=== PATIENT | female | born 1975 | race Caucasian/White ===

== ENCOUNTER 2021-02-05 09:53 | Day surgery (SDC) | payer BC, MEDICAID ==
[~2021-02-05 09:53] MED LIST: Glycopyrrolate 0.2 MG/ML SDV ONE; Ketorolac 30 MG/ML SDV ONE; Lidocaine 2% 5 ML SDV ONE; Midazolam 1 MG/ML 2 ML SDV ONE; Ondansetron 4 MG/2 ML SDV ONE; Propofol 200 MG/20 ML SDV ONE; Rocuronium Bromide 50 MG/5 ML Syringe ONE; Sugammadex Sodium 200 MG/2 ML VIAL ONE; fentaNYL 250 MCG/5 ML SDV ONE
[2021-02-05 10:03] LABS: BLOOD UREA NITROGEN,BUN 9 mg/dL (7.0-18.0); CARBON DIOXIDE,CO2 21.2 mmol/L (21.0-32.0); CHLORIDE,CL 106 mmol/L (98-107); GLUCOSE RANDOM 107 mg/dL (74-106); POTASSIUM,K 4.4 mmol/L (3.5-5.1); SODIUM,NA 140 mmol/L (136-145)
[2021-02-05] MEDS: Lactated Ringers 1,000 ML IV SCH ×2 (11:22→15:42)
[2021-02-05] MEDS ORDERED: Albuterol 0.083% 2.5 MG/3 ML Neb Soln NEB PRN (11:26)
[2021-02-05] MEDS ORDERED: Metoclopramide 10 MG/2 ML SDV IVPUSH PRN (11:26)
[2021-02-05] MEDS ORDERED: Naloxone 0.4 MG/ML SDV IVPUSH PRN (11:26)
[2021-02-05] MEDS ORDERED: fentaNYL 100 MCG/2 ML SDV IVPUSH PRN (11:26)
[2021-02-05] MEDS ORDERED: Ondansetron 4 MG/2 ML SDV IVPUSH PRN ×2 (11:26→14:31)
--- NOTE | 2021-02-05 11:26 | PCM.PREANE ---
Preanesthetic Assessment - Procedure Proposed Procedure: Lap assisted Vag Hysterectomy, Cysto, Poss USO or BSO - Anesthesia/Transfusion/Family Hx Anesthesia History: Prior Anesthesia Without Reaction Other Type of Anesthesia Reaction Comment: "daughter has problems with hyperactivity after anesthesia" Transfusion History: No Prior Transfusion(s) - Review of Systems General: No Symptoms Pulmonary: No Symptoms (Smokes about 2 cigs/day) Cardiovascular: No Symptoms Gastrointestinal: No Symptoms (GERD, well controlled) - Physical Assessment NPO Status Date: 02/04/21 NPO Status Time: 16:00 Height: 5 ft 6 in Weight: 78.925 kg ASA Class: 2 Mental Status: Alert & Oriented x3 Airway Class: Mallampati = 3 Dentition: Reports: Normal Dentition Thyro-Mental Finger Breadths: 3 Mouth Opening Finger Breadths: 3 ROM/Head Extension: Full Lungs: Clear to Auscultation, Normal Respiratory Effort Cardiovascular: Regular Rate, Regular Rhythm - Lab Values: Laboratory Last Values WBC 4.99 K/uL (4.0-11.0) 02/05/21 09:38 RBC 3.84 M/uL (4.30-5.90) L 02/05/21 09:38 Hgb 7.2 g/dL (12.0-16.0) L 02/05/21 09:38 Hct 26.1 % (36.0-46.0) L 02/05/21 09:38 MCV 68.0 fL (80.0-98.0) L 02/05/21 09:38 MCH 18.8 pg (27.0-32.0) L 02/05/21 09:38 MCHC 27.6 g/dL (31.0-37.0) L 02/05/21 09:38 RDW Std Deviation 53.8 fl (28.0-62.0) 02/05/21 09:38 RDW Coeff of Whitley 22 % (11.0-15.0) H 02/05/21 09:38 Plt Count 370 K/uL (150-400) 02/05/21 09:38 MPV 8.50 fL (7.40-12.00) 02/05/21 09:38 Nucleated RBC % 0.0 /100WBC 02/05/21 09:38 Nucleated RBCs # 0 K/uL 02/05/21 09:38 Sodium 140 mmol/L (136-145) 02/05/21 09:38 Potassium 4.4 mmol/L (3.5-5.1) 02/05/21 09:38 Chloride 106 mmol/L (98-107) 02/05/21 09:38 Carbon Dioxide 21.2 mmol/L (21.0-32.0) 02/05/21 09:38 BUN 9 mg/dL (7.0-18.0) 02/05/21 09:38 Creatinine 0.6 mg/dL (0.6-1.0) 02/05/21 09:38 Est Cr Clr Drug Dosing 108.51 mL/min 02/05/21 09:38 Estimated GFR (MDRD) > 60.0 ml/min 02/05/21 09:38 Glucose 107 mg/dL (74-106) H 02/05/21 09:38 Calcium 8.3 mg/dL (8.5-10.1) L 02/05/21 09:38 HCG, Qual NEGATIVE (NEG) 02/05/21 09:38 SARS-CoV-2 RNA (ARSEN) NEGATIVE (NEGATIVE) 02/05/21 09:46 Blood Type A POSITIVE 02/05/21 09:38 Antibody Screen NEGATIVE 02/05/21 09:38 - Allergies Allergies/Adverse Reactions: Allergies Allergy/AdvReac Type Severity Reaction Status Date / Time ciprofloxacin [From Cipro] Allergy Redness/swelling Verified 02/05/21 11:23 at IV site ciprofloxacin HCl Allergy Redness & Verified 02/05/21 11:23 [From Cipro] swelling at IV site morphine Allergy loss of Verified 02/05/21 11:23 vision - Acknowledgements Anesthesia Type Planned: General Anesthesia Pt an Appropriate Candidate for the Planned Anesthesia: Yes Alternatives and Risks of Anesthesia Discussed w Pt/Guardian: Yes Pt/Guardian Understands and Agrees with Anesthesia Plan: Yes PreAnesthesia Questionnaire - Past Health History Medical/Surgical History: Denies Medical/Surgical History HEENT History: Reports: None Cardiovascular History: Reports: None Respiratory History: Reports: None Gastrointestinal History: Reports: GERD Genitourinary History: Reports: None 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: , Spontaneous Musculoskeletal History: Reports: None Neurological History: Reports: None Psychiatric History: Reports: Anxiety, Depression Endocrine/Metabolic History: Reports: None Hematologic History: Reports: None Immunologic History: Reports: None Oncologic (Cancer) History: Reports: None Dermatologic History: Reports: None - Past Surgical History Head Surgeries/Procedures: Reports: None HEENT Surgical History: Reports: None Cardiovascular Surgical History: Reports: None Respiratory Surgical History: Reports: None GI Surgical History: Reports: None Female Surgical History: Reports: Section, D&C Endocrine Surgical History: Reports: None Neurological Surgical History: Reports: None Musculoskeletal Surgical History: Reports: None Oncologic Surgical History: Reports: None Dermatological Surgical History: Reports: None - SUBSTANCE USE Tobacco Use Status *Q: Light Tobacco User Tobacco Use Within Last Twelve Months: Cigarettes - HOME MEDS Home Medications: Home Meds Omeprazole 20 mg PO DAILY PRN 01/29/21 [History] - CURRENT (IN HOUSE) MEDS Current Meds: Current Medications Lactated Ringer's (Ringers, Lactated) 1,000 mls @ 125 mls/hr IV ASDIRECTED [facility] Last Admin: 02/05/21 11:22 Dose: 125 mls/hr Documented by: Discontinued Medications Fentanyl (Fentanyl 250 Mcg/5 Ml Sdv) Confirm Administered Dose 250 mcg .ROUTE .STK-MED ONE Stop: 02/05/21 07:26 Glycopyrrolate (Glycopyrrolate 0.2 Mg/Ml Sdv) Confirm Administered Dose 0.2 mg .ROUTE .STK-MED ONE Stop: 02/05/21 07:26 Ketorolac Tromethamine (Ketorolac 30 Mg/Ml Sdv) Confirm Administered Dose 30 mg .ROUTE .STK-MED ONE Stop: 02/05/21 07:26 Lidocaine (Lidocaine 2% 5 Ml Sdv) Confirm Administered Dose 5 ml .ROUTE .STK-MED ONE Stop: 02/05/21 07:26 Midazolam HCl (Midazolam 1 Mg/Ml 2 Ml Sdv) Confirm Administered Dose 2 mg .ROUTE .STK-MED ONE Stop: 02/05/21 07:25 Ondansetron HCl (Ondansetron 4 Mg/2 Ml Sdv) Confirm Administered Dose 4 mg .ROUTE .STK-MED ONE Stop: 02/05/21 07:26 Propofol (Propofol 200 Mg/20 Ml Sdv) Confirm Administered Dose 200 mg .ROUTE .STK-MED ONE Stop: 02/05/21 07:25 Rocuronium Abernathy (Rocuronium Abernathy 50 Mg/5 Ml Syringe) Confirm Administered Dose 50 mg .ROUTE .STK-MED ONE Stop: 02/05/21 07:26 Sugammadex Sodium (Sugammadex Sodium 200 Mg/2 Ml Vial) Confirm Administered Dose 200 mg .ROUTE .[employer]-MED ONE Stop: 02/05/21 07:26
--- NOTE | 2021-02-05 13:51 | PCM.POSTAN ---
POST ANESTHESIA ASSESSMENT - MENTAL STATUS Mental Status: Alert, Oriented - VITAL SIGNS Vital Signs: Last Vital Signs Temp 97.9 F 02/05/21 11:25 Pulse 74 02/05/21 11:25 Resp 16 02/05/21 11:25 BP 123/82 02/05/21 11:25 Pulse Ox 99 02/05/21 11:25 - RESPIRATORY Respiratory Status: Respiratory Rate WNL, Airway Patent, O2 Saturation Stable - CARDIOVASCULAR CV Status: Pulse Rate WNL, Blood Pressure Stable - GASTROINTESTINAL GI Status: No Symptoms - PAIN Pain Score: 4 - POST OP HYDRATION Hydration Status: Adequate & Stable
[2021-02-05] MEDS ORDERED: Fluorescein 5 ML Vial ONE (13:53)
[2021-02-05] MEDS ORDERED: Bupivacaine 0.25% 10 ML SDV ONE (13:53)
[2021-02-05] MEDS ORDERED: Methylene Blue 50 MG/10 ML Ampule ONE (13:53)
[2021-02-05] MEDS ORDERED: Octyl 2-Cyanoacrylate 1 Tube ONE (13:54)
--- NOTE | 2021-02-05 13:55 | PCM48HPAN ---
Post Anesthesia Note - EVALUATION WITHIN 48HRS OF ANESTHETIC Vital Signs in Normal Range: Yes Patient Participated in Evaluation: Yes Respiratory Function Stable: Yes Airway Patent: Yes Cardiovascular Function Stable: Yes Hydration Status Stable: Yes Pain Control Satisfactory: Yes Nausea and Vomiting Control Satisfactory: Yes Mental Status Recovered: Yes Vital Signs: Last Vital Signs Temp 97.9 F 02/05/21 13:46 Pulse 91 02/05/21 13:52 Resp 14 02/05/21 13:52 BP 100/55 L 02/05/21 13:52 Pulse Ox 93 L 02/05/21 13:52 - COMMENTS/OBSERVATIONS Free Text/Narrative:: Pt doing well post-op. VSS. No apparent anesthetic complications. Dr. Nima Ruth
[2021-02-05] MEDS: HYDROmorphone 1 MG/ML Syringe IVPUSH PRN ×2 (13:57→14:23)
[2021-02-05] MEDS ORDERED: Acetaminophen/oxyCODONE 325-5 MG Tab PO PRN (14:31)
[2021-02-05] MEDS ORDERED: Promethazine 25 MG/ML SDV IM PRN (14:31)
--- NOTE | 2021-02-05 14:39 | PCM.OPNOTE ---
- General Post-Op/Procedure Note Date of Surgery/Procedure: 02/05/21 Operative Procedure(s): laparoscopically assisted vaginal hysterectomy right salpingectomy and cystoscopy. Findings: uterus 10-11 week size. Cystoscopy, normal with copious flow from bilateral ureters. The left adnexa had a tuboovarian complex with adhesions and fibroma immediately over the ureter, therefore right tube was left in situ. Pre Op Diagnosis: menorrhagia, anemia Post-Op Diagnosis: Same Anesthesia Technique: General ET Tube Primary Surgeon: Sunshine Iglesias Secondary Surgeon: Jovan Rubio Anesthesia Provider: Nima Ruth Mechanical Piping Designer: Azam Wolf Pathology: uterus and right tube. EBL in mLs: 500 Complications: None Condition: Good Free Text/Narrative:: Intake & Output 02/04/21 02/05/21 02/05/21 22:59 06:59 14:59 Intake Total 500 Output Total 975 Balance -475
[2021-02-05] MEDS ORDERED: Omeprazole 20 MG Cap.CR PO PRN (14:58)
[2021-02-05] MEDS ORDERED: oxyCODONE 5 MG Tab PO ONE (18:00)
[2021-02-05] MEDS: Acetaminophen/oxyCODONE 325-5 MG Tab PO PRN (19:59)
--- NOTE | 2021-02-05 20:39 | OR ---
SURGEON: Sunshine Iglesias M.D. DATE OF PROCEDURE: 02/05/2021 PREOPERATIVE DIAGNOSIS: Menorrhagia with anemia. POSTOPERATIVE DIAGNOSIS: Menorrhagia with anemia. PROCEDURE: Laparoscopically assisted vaginal hysterectomy with right salpingectomy and cystoscopy. PRIMARY SURGEON: Sunshine Iglesias M.D. REAMING PRESS OPERATOR: Jovan Rubio MD ANESTHESIA: General endotracheal. ESTIMATED BLOOD LOSS: 500 mL. FINDINGS: Uterus enlarged, 10-week size, sounds to 10 cm. Left tubo-ovarian complex overlying the left ureter left in situ. Normal-appearing right ovary. On cystoscopy, there was no evidence of any bladder trauma with copious flow of bright green urine from bilateral ureteral orifices after IV fluorescein had been given. COMPLICATIONS: None known. DISPOSITION: Stable to Recovery. BRIEF HISTORY: This is a 45-year-old female. She presents having had two prior C-sections, one prior vaginal delivery, with complaint of menorrhagia. Initially, the plan was to proceed with an ablation and bilateral salpingectomy for sterilization; however, further evaluation revealed suspected adenomyosis on ultrasound as well as an intra-endometrial mass. Endometrial biopsy was performed and was benign. Also, Pap smear and HPV were obtained and were negative, and due to the finding of adenomyosis, I discussed the option of a hysteroscopy with removal of the intracavitary lesion, as well as placement of an IUD which would be more effective than ablation versus proceeding directly with hysterectomy. She desires to proceed directly with hysterectomy. The hysterectomy was initially scheduled for last week, however, was delayed due to endometrial biopsy results and this week, she presents for preop labs with a hemoglobin of 7.2. I discussed the option of waiting and receiving IV iron and attempting to elevate her hemoglobin versus proceeding on with the surgery, understanding that she very likely will require a transfusion. After this discussion, she did desire to proceed with the surgery. Surgical risks otherwise have been discussed including bleeding; infection; injury to bowel, bladder, blood vessels, ureters, or other organs; risk of thromboembolic event; and risk of anesthesia. Understanding all these risks, she does desire to proceed. DESCRIPTION OF PROCEDURE: With the patient in dorsal lithotomy position, under adequate general endotracheal anesthesia, the abdomen was prepped with chlorhexidine and the vaginal and perineal area were prepped with Betadine and draped in the usual fashion for laparoscopically assisted vaginal surgery. SCDs had been placed. Bella catheter had been placed and backfilled with 30 mL of dilute indigo carmine. An appropriate time-out was held. She had received 2 g of Ancef IV. A bimanual examination was performed revealing an anteverted 10-week size uterus. Speculum was placed in the vagina. The cervix was grasped with a Bolivar tenaculum and the uterus sounded to 10 cm and accepted the ZUMI uterine manipulator without further dilatation and the balloon was filled. The instruments removed from the vagina. Cone Machine Feeder's gloves were changed. Attention was then turned abdominally, where 3 mL of 0.25% Marcaine were injected inferior to the umbilicus. A transverse curvilinear incision was made with a scalpel inferior to the umbilicus and the anterior abdominal wall was elevated. Veress needle was inserted with an opening pressure of 3 to 4 mmHg. CO2 was insufflated to develop an adequate pneumoperitoneum of 13 mmHg. The 5 mm port was placed and laparoscope was placed into the abdominal cavity. There was no evidence of any trauma from the port placement site. Two additional ports were placed 2 cm medial and cephalad from the anterior superior iliac spine on the right and the left. The uterus was elevated. The patient was placed in steep Trendelenburg position. The bowel was retracted out of the pelvis. The right ureter was easily identified deep within the pelvis. The left ureter was noted to enter to flow right beneath the peritoneum, beneath the dense adhesions of a tubo-ovarian complex with the tube wrapped around and densely adhered to the ovary. 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 Knowing that she was starting with a hemoglobin of 7.2 and trying to avoid an open abdominal surgery and knowing that she also did not have a primary complaint of left-sided pain, I did decide to leave the tube intact on the left side and proceeded with grasping the tip of the right tube and the tip of the tube from the ovary using the LigaSure, proceeding across the mesosalpinx proximally using the LigaSure, and then cross-clamping the utero- ovarian ligament on the right, using the LigaSure cutting and cauterizing and then entering the round ligament on the right, opening the anterior leaf of the broad ligament as well as the posterior leaf of the broad ligament, and then proceeding inferiorly to the upper portion of the uterine vessels. With all of the dissection, there was bleeding despite extensive coagulation, so I did proceed with opening the anterior leaf of the broad ligament, developing a bladder flap using the LigaSure, and I repeated the process on the left side except I did cross-clamp the tube adjacent to the uterus, cauterized and ligated it, proceeded down the round ligament, opened the anterior and posterior ligaments on the left. Due to the extremely large uterine vessels, I felt that it was safest to proceed vaginally at this point to limit blood loss which I felt I could better ligate these vessels vaginally than the LigaSure could do. Therefore, machine operator cane cutter's gloves were changed. The abdomen was desufflated. The patient was placed in high Trendelenburg position. The bladder was released. A weighted speculum was placed posteriorly and right angle retractors were placed anteriorly on the vaginal sidewalls and the cervix was grasped with a Bolivar tenaculum, circumscribed using electrocautery. The vaginal mucosa was pushed away from the cervix using a sponge, and the posterior cul-de-sac was sharply entered. A Karine-Auvard speculum was placed posteriorly. At this point, there was approximately 200 mL of blood in the posterior cul-de-sac and therefore, I did request to transfuse two units of packed red blood cells with Anesthesia. Anesthesia, however, felt that the patient was stable despite her anemia and recommended not transfusing blood at this point. They asked my estimated total blood loss prediction for the procedure, and I stated that it was 400 and therefore, they felt that we could check a postop hemoglobin. She did remain stable throughout the remainder of the surgery. The anterior cul-de- sac was entered sharply. A finger was placed into the peritoneal cavity. A right angle retractor was placed anteriorly. The uterosacral ligaments were clamped, cut, and ligated using Jazmín ligature of 2-0 Polysorb. The two additional pedicles were taken on the right and the left, incorporating the lower portion of the broad ligament and completely ligating the uterine vessels. At this point, the pelvis was hemostatic. The uterus and right tube were delivered vaginally. The pedicles were inspected and were hemostatic. The retained uterosacral ligatures were ligated to the vaginal apices bilaterally. The vaginal mucosa was closed with a running lock suture of 0 Polysorb. The Bella catheter was then removed. IV Lasix and fluorescein had been given. Cystoscopy was performed using sterile water as a distending medium. There was copious flow of bright green urine from bilateral ureteral orifices. There was also no evidence of any trauma to the bladder mucosa. This being completed, the speculum was placed in the vagina and the incision was hemostatic. Then, machine operator cane cutter's gloves were changed and the abdomen was re-insufflated and careful inspection of the pelvis revealed approximately another 100 mL of clot in the pelvis that was removed. The pelvis was copiously irrigated and inspected. There were no discrete areas of bleeding. Avitene was placed and the pelvis was inspected under high and low pressures, and remained hemostatic. Therefore, the abdomen was completely desufflated. The port sites were removed. The skin was closed with Dermabond. Speculum was again placed in the vagina, and a small abrasion on the right aspect of the vaginal cuff was closed for hemostasis using a [id number] suture of 0 Polysorb. The vagina was otherwise hemostatic. Bella catheter had been replaced. Final sponge, needle, and instrument counts were reported as correct. There were no known complications. The patient was transferred to Recovery in good condition. CAITLIN / SANJEEV /[id number]
[2021-02-06] MEDS: Acetaminophen/oxyCODONE 325-5 MG Tab PO PRN ×3 (01:20→10:57)
[2021-02-06 07:56] LABS: BLOOD UREA NITROGEN,BUN 5 mg/dL (7.0-18.0); CARBON DIOXIDE,CO2 24.6 mmol/L (21.0-32.0); CHLORIDE,CL 104 mmol/L (98-107); GLUCOSE RANDOM 109 mg/dL (74-106); SODIUM,NA 138 mmol/L (136-145)
[2021-02-06] MEDS ORDERED: Ketorolac 30 MG/ML SDV IVPUSH ONE (08:00)
--- NOTE | 2021-02-06 09:35 | PCM.SURGPN ---
- General Info Date of Service: 02/06/21 Date of Surgery/Procedure: 02/05/21 POD#: 1 Post-Op Diagnosis: menorrhagia with anemia Functional Status: Reports: Pain Controlled, Tolerating Diet, Ambulating, Urinating - Review of Systems General: Reports: No Symptoms HEENT: Reports: No Symptoms Pulmonary: Reports: No Symptoms Cardiovascular: Reports: No Symptoms Gastrointestinal: Reports: No Symptoms Genitourinary: Reports: No Symptoms Musculoskeletal: Reports: No Symptoms Skin: Reports: No Symptoms Neurological: Reports: No Symptoms Psychiatric: Reports: No Symptoms - Patient Data Vitals - Most Recent: Last Vital Signs Temp 36.9 C 02/06/21 08:00 Pulse 74 02/06/21 08:00 Resp 16 02/06/21 08:00 BP 96/59 L 02/06/21 08:00 Pulse Ox 95 02/06/21 08:00 Weight - Most Recent: 78.925 kg I&O - Last 24 Hours: Intake & Output 02/05/21 02/06/21 02/06/21 22:59 06:59 14:59 Intake Total 0 2200 Output Total 2900 Balance 0 -700 Lab Results Last 24 Hrs: Laboratory Results - last 24 hr 02/05/21 02/05/21 02/05/21 Range/Units 09:38 09:38 09:38 WBC 4.99 (4.0-11.0) K/uL RBC 3.84 L (4.30-5.90) M/uL Hgb 7.2 L (12.0-16.0) g/dL Hct 26.1 L (36.0-46.0) % MCV 68.0 L (80.0-98.0) fL MCH 18.8 L (27.0-32.0) pg MCHC 27.6 L (31.0-37.0) g/dL RDW Std Deviation 53.8 (28.0-62.0) fl RDW Coeff of Whitley 22 H (11.0-15.0) % Plt Count 370 (150-400) K/uL MPV 8.50 (7.40-12.00) fL Neut % (Auto) (48.0-80.0) % Lymph % (Auto) (16.0-40.0) % [place] % (Auto) (0.0-15.0) % Eos % (Auto) (0.0-7.0) % Baso % (Auto) (0.0-1.5) % Neut # (Auto) (1.4-5.7) K/uL Lymph # (Auto) (0.6-2.4) K/uL [place] # (Auto) (0.0-0.8) K/uL Eos # (Auto) (0.0-0.7) K/uL Baso # (Auto) (0.0-0.1) K/uL Nucleated RBC % 0.0 /100WBC Nucleated RBCs # 0 K/uL Sodium 140 (136-145) mmol/L Potassium 4.4 (3.5-5.1) mmol/L Chloride 106 (98-107) mmol/L Carbon Dioxide 21.2 (21.0-32.0) mmol/L BUN 9 (7.0-18.0) mg/dL Creatinine 0.6 (0.6-1.0) mg/dL Est Cr Clr Drug Dosing 108.51 mL/min Estimated GFR (MDRD) > 60.0 ml/min Glucose 107 H (74-106) mg/dL Calcium 8.3 L (8.5-10.1) mg/dL HCG, Qual NEGATIVE (NEG) SARS-CoV-2 RNA (ARSEN) (NEGATIVE) Blood Type Antibody Screen Crossmatch 02/05/21 02/05/21 02/05/21 Range/Units 09:38 09:46 19:23 WBC (4.0-11.0) K/uL RBC (4.30-5.90) M/uL Hgb 6.3 L (12.0-16.0) g/dL Hct 22.7 L (36.0-46.0) % MCV (80.0-98.0) fL MCH (27.0-32.0) pg MCHC (31.0-37.0) g/dL RDW Std Deviation (28.0-62.0) fl RDW Coeff of Whitley (11.0-15.0) % Plt Count (150-400) K/uL MPV (7.40-12.00) fL Neut % (Auto) (48.0-80.0) % Lymph % (Auto) (16.0-40.0) % [place] % (Auto) (0.0-15.0) % Eos % (Auto) (0.0-7.0) % Baso % (Auto) (0.0-1.5) % Neut # (Auto) (1.4-5.7) K/uL Lymph # (Auto) (0.6-2.4) K/uL [place] # (Auto) (0.0-0.8) K/uL Eos # (Auto) (0.0-0.7) K/uL Baso # (Auto) (0.0-0.1) K/uL Nucleated RBC % /100WBC Nucleated RBCs # K/uL Sodium (136-145) mmol/L Potassium (3.5-5.1) mmol/L Chloride (98-107) mmol/L Carbon Dioxide (21.0-32.0) mmol/L BUN (7.0-18.0) mg/dL Creatinine (0.6-1.0) mg/dL Est Cr Clr Drug Dosing mL/min Estimated GFR (MDRD) ml/min Glucose (74-106) mg/dL Calcium (8.5-10.1) mg/dL HCG, Qual (NEG) SARS-CoV-2 RNA (ARSEN) NEGATIVE (NEGATIVE) Blood Type A POSITIVE Antibody Screen NEGATIVE Crossmatch See Detail 02/06/21 02/06/21 Range/Units 06:43 06:43 WBC 12.11 H (4.0-11.0) K/uL RBC 3.91 L (4.30-5.90) M/uL Hgb 8.6 L (12.0-16.0) g/dL Hct 28.9 L (36.0-46.0) % MCV 73.9 L (80.0-98.0) fL MCH 22.0 L (27.0-32.0) pg MCHC 29.8 L (31.0-37.0) g/dL RDW Std Deviation 69.0 H (28.0-62.0) fl RDW Coeff of Whitley 26 H (11.0-15.0) % Plt Count 331 (150-400) K/uL MPV 9.40 (7.40-12.00) fL Neut % (Auto) 78.2 (48.0-80.0) % Lymph % (Auto) 12.8 L (16.0-40.0) % [place] % (Auto) 8.8 (0.0-15.0) % Eos % (Auto) 0.1 (0.0-7.0) % Baso % (Auto) 0.1 (0.0-1.5) % Neut # (Auto) 9.5 H (1.4-5.7) K/uL Lymph # (Auto) 1.6 (0.6-2.4) K/uL [place] # (Auto) 1.1 H (0.0-0.8) K/uL Eos # (Auto) 0.0 (0.0-0.7) K/uL Baso # (Auto) 0.0 (0.0-0.1) K/uL Nucleated RBC % 0.0 /100WBC Nucleated RBCs # 0 K/uL Sodium 138 (136-145) mmol/L Potassium 4.0 (3.5-5.1) mmol/L Chloride 104 (98-107) mmol/L Carbon Dioxide 24.6 (21.0-32.0) mmol/L BUN 5 L (7.0-18.0) mg/dL Creatinine 0.7 (0.6-1.0) mg/dL Est Cr Clr Drug Dosing 92.10 mL/min Estimated GFR (MDRD) > 60.0 ml/min Glucose 109 H (74-106) mg/dL Calcium 8.3 L (8.5-10.1) mg/dL HCG, Qual (NEG) SARS-CoV-2 RNA (ARSEN) (NEGATIVE) Blood Type Antibody Screen Crossmatch Med Orders - Current: Current Medications Lactated Ringer's (Ringers, Lactated) 1,000 mls @ 125 mls/hr IV ASDIRECTED [facility] Last Admin: 02/05/21 15:42 Dose: 125 mls/hr Documented by: Omeprazole (Omeprazole 20 Mg Cap.Cr) 20 mg PO DAILY PRN PRN Reason: Heartburn Ondansetron HCl (Ondansetron 4 Mg/2 Ml Sdv) 4 mg IVPUSH Q6H PRN PRN Reason: Nausea/Vomiting Oxycodone/Acetaminophen (Acetaminophen/Oxycodone 325-5 Mg Tab) 1 tab PO Q4H PRN PRN Reason: Pain (moderate 4-6) Last Admin: 02/05/21 15:32 Dose: 1 tab Documented by: Oxycodone/Acetaminophen (Acetaminophen/Oxycodone 325-5 Mg Tab) 2 tab PO Q4H PRN PRN Reason: Pain (moderate 4-6) Last Admin: 02/06/21 06:15 Dose: 2 tab Documented by: Promethazine HCl (Promethazine 25 Mg/Ml Sdv) 25 mg IM Q6H PRN PRN Reason: Nausea/Vomiting Discontinued Medications Albuterol (Albuterol 0.083% 2.5 Mg/3 Ml Neb Soln) 2.5 mg NEB ONETIME PRN PRN Reason: Wheezing Bupivacaine HCl (Bupivacaine 0.25% 10 Ml Sdv) Confirm Administered Dose 10 ml .ROUTE .STK-MED ONE Stop: 02/05/21 13:54 Droperidol (Droperidol 5 Mg/2 Ml Sdv) 0.625 mg IVPUSH ONETIME PRN PRN Reason: Nausea/Vomiting Fentanyl (Fentanyl 250 Mcg/5 Ml Sdv) Confirm Administered Dose 250 mcg .ROUTE .STK-MED ONE Stop: 02/05/21 07:26 Fentanyl (Fentanyl 100 Mcg/2 Ml Sdv) 50 mcg IVPUSH Q5M PRN PRN Reason: Pain (mild 1-3) Fluorescein Sodium (Fluorescein 5 Ml Vial) Confirm Administered Dose 5 ml .ROUTE .STK-MED ONE Stop: 02/05/21 13:54 Glycopyrrolate (Glycopyrrolate 0.2 Mg/Ml Sdv) Confirm Administered Dose 0.2 mg .ROUTE .STK-MED ONE Stop: 02/05/21 07:26 Hydromorphone HCl (Hydromorphone 1 Mg/Ml Syringe) 1 mg IVPUSH Q10M PRN PRN Reason: Pain (moderate 4-6) Last Admin: 02/05/21 14:23 Dose: 1 mg Documented by: Ketorolac Tromethamine (Ketorolac 30 Mg/Ml Sdv) Confirm Administered Dose 30 mg .ROUTE .STK-MED ONE Stop: 02/05/21 07:26 Ketorolac Tromethamine (Ketorolac 30 Mg/Ml Sdv) 30 mg IVPUSH ONETIME ONE Stop: 02/06/21 08:01 Last Admin: 02/06/21 08:04 Dose: 30 mg Documented by: Lidocaine (Lidocaine 2% 5 Ml Sdv) Confirm Administered Dose 5 ml .ROUTE .ST-MED ONE Stop: 02/05/21 07:26 Methylene Blue (Methylene Blue 50 Mg/10 Ml Ampule) Confirm Administered Dose 50 mg .ROUTE .STK-MED ONE Stop: 02/05/21 13:54 Metoclopramide HCl (Metoclopramide 10 Mg/2 Ml Sdv) 10 mg IVPUSH ONETIME PRN PRN Reason: Nausea/Vomiting Midazolam HCl (Midazolam 1 Mg/Ml 2 Ml Sdv) Confirm Administered Dose 2 mg .ROUTE .ST-MED ONE Stop: 02/05/21 07:25 Naloxone HCl (Naloxone 0.4 Mg/Ml Sdv) 0.1 mg IVPUSH ASDIRECTED PRN PRN Reason: Respiratory Depression Octyl Cyanoacrylate (Octyl 2-Cyanoacrylate 1 Tube) Confirm Administered Dose 1 applic .ROUTE .[facility]-MED ONE Stop: 02/05/21 13:55 Ondansetron HCl (Ondansetron 4 Mg/2 Ml Sdv) Confirm Administered Dose 4 mg .ROUTE .ST-MED ONE Stop: 02/05/21 07:26 Ondansetron HCl (Ondansetron 4 Mg/2 Ml Sdv) 4 mg IVPUSH ONETIME PRN PRN Reason: Nausea/Vomiting Oxycodone HCl (Oxycodone 5 Mg Tab) 5 mg PO ONETIME ONE Stop: 02/05/21 18:01 Last Admin: 02/05/21 18:11 Dose: 5 mg Documented by: Propofol (Propofol 200 Mg/20 Ml Sdv) Confirm Administered Dose 200 mg .ROUTE .ST-MED ONE Stop: 02/05/21 07:25 Rocuronium Magnolia (Rocuronium Magnolia 50 Mg/5 Ml Syringe) Confirm Administered Dose 50 mg .ROUTE .[facility]-MED ONE Stop: 02/05/21 07:26 Sugammadex Sodium (Sugammadex Sodium 200 Mg/2 Ml Vial) Confirm Administered Dose 200 mg .ROUTE .ST-MED ONE Stop: 02/05/21 07:26 - Exam Wound/Incisions: Healing Well General: Alert, Oriented Neck: Supple Lungs: Normal Respiratory Effort GI/Abdominal Exam: Soft, Non-Tender, No Distention Extremities: Non-Tender, No Pedal Edema Skin: Warm, Dry, Intact Psy/Mental Status: Alert, Normal Affect, Normal Mood Sepsis Event Note - Evaluation Sepsis Screening Result: No Definite Risk - Focused Exam Vital Signs: Vital Signs Temp Temp Pulse Resp BP Pulse Ox 02/06/21 08:00 36.9 C 74 16 96/59 L 95 02/06/21 06:08 36.9 C 74 16 105/65 96 02/06/21 05:08 36.8 C 68 16 104/65 98 02/06/21 04:06 36.7 C 77 16 109/65 97 02/06/21 02:27 36.8 C 63 17 102/62 97 02/06/21 02:12 36.8 C 73 16 106/66 98 02/06/21 01:31 36.7 C 70 16 109/60 98 02/05/21 23:08 36.7 C 76 17 109/60 97 02/05/21 22:53 36.7 C 74 16 110/65 98 02/05/21 22:38 36.6 C 62 16 102/62 97 - Problem List & Annotations (1) Menorrhagia with irregular cycle SNOMED Code(s): 217541989 Code(s): N92.1 - EXCESSIVE AND FREQUENT MENSTRUATION WITH IRREGULAR CYCLE Status: Acute Current Visit: Yes - Problem List Review Problem List Initiated/Reviewed/Updated: Yes - My Orders Last 24 Hours: Active Orders 24 hr Category Date Time Status Patient Status [ADT] Routine ADT 02/05/21 14:32 Active Antiembolic Devices [RC] PER UNIT ROUTINE Care 02/05/21 14:32 Active Notify Provider Intake and Out [RC] ASDIRECTED Care 02/05/21 14:32 Active Notify Provider Vital Signs [RC] ASDIRECTED Care 02/05/21 14:32 Active Overnight Pulse Oximetry [RC] Click to Edit Care 02/05/21 11:26 Active Oxygen Therapy [RC] ASDIRECTED Care 02/05/21 14:32 Active RT Incentive Spirometry [RC] Q2HWA Care 02/05/21 14:32 Active Ready for Discharge [RC] PER UNIT ROUTINE Care 02/06/21 09:29 Ordered Up With Assistance [RC] PER UNIT ROUTINE Care 02/05/21 14:32 Active Up ad Moraima [RC] PER UNIT ROUTINE Care 02/05/21 14:32 Active Urinary Catheter Removal [RC] Per Unit Routine Care 02/05/21 14:32 Active Vital Signs [RC] Q4H Care 02/05/21 14:32 Active Regular Diet [DIET] Diet 02/05/21 Dinner Active Acetaminophen/oxyCODONE [Percocet 325-5 MG] Med 02/05/21 14:31 Active 1 tab PO Q4H PRN Acetaminophen/oxyCODONE [Percocet 325-5 MG] Med 02/05/21 14:31 Active 2 tab PO Q4H PRN Omeprazole Med 02/05/21 14:58 Active 20 mg PO DAILY PRN Ondansetron [Zofran] Med 02/05/21 14:31 Active 4 mg IVPUSH Q6H PRN Promethazine [Phenergan] Med 02/05/21 14:31 Active 25 mg IM Q6H PRN Peripheral IV Discontinue [OM.PC] Routine Oth 02/05/21 14:32 Ordered Pulse Oximetry Continuous Monitoring [OM.PC] Routine Oth 02/05/21 11:26 Ordered Sequential Compression Device [OM.PC] Per Unit Routine Oth 02/05/21 14:32 Ordered Transfuse Red Blood Cells [COMM] Stat Oth 02/05/21 21:21 Ordered Resuscitation Status Routine Resus Stat 02/05/21 14:31 Ordered Medication Orders Lactated Ringer's (Ringers, Lactated) 1,000 mls @ 125 mls/hr IV ASDIRECTED [facility] Last Admin: 02/05/21 15:42 Dose: 125 mls/hr Documented by: Infusion: 02/05/21 15:42 Dose: 125 mls/hr Documented by: Admin: 02/05/21 11:22 Dose: 125 mls/hr Documented by: BRITTNEY Omeprazole (Omeprazole 20 Mg Cap.Cr) 20 mg PO DAILY PRN PRN Reason: Heartburn Ondansetron HCl (Ondansetron 4 Mg/2 Ml Sdv) 4 mg IVPUSH Q6H PRN PRN Reason: Nausea/Vomiting Oxycodone/Acetaminophen (Acetaminophen/Oxycodone 325-5 Mg Tab) 1 tab PO Q4H PRN PRN Reason: Pain (moderate 4-6) Last Admin: 02/05/21 15:32 Dose: 1 tab Documented by: YOVANNY Oxycodone/Acetaminophen (Acetaminophen/Oxycodone 325-5 Mg Tab) 2 tab PO Q4H PRN PRN Reason: Pain (moderate 4-6) Last Admin: 02/06/21 06:15 Dose: 2 tab Documented by: Admin: 02/06/21 01:20 Dose: 2 tab Documented by: Admin: 02/05/21 19:59 Dose: 2 tab Documented by: LIZY Promethazine HCl (Promethazine 25 Mg/Ml Sdv) 25 mg IM Q6H PRN PRN Reason: Nausea/Vomiting - Assessment Assessment (Free Text/Narrative):: POD#1 after LAVH, with marked anemia on preoperative labs. Post op H/H 6.2/22.6 received 2 units PRBC last night at that time she was feeling week and dizzy, although vitals were stable. Tolerated well. Dizziness is somewhat improved today. She is up in bed, will ambulate this am. Pain control is better after ketorolac that was given this am. - Plan Plan (Free Text/Narrative):: Discharge instructions reviewed. 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 Dismiss to home today
[2021-02-06 10:33] VITALS: BP 96/59; PULSE 74
== END 2021-02-06 10:50 | disposition home or self-care (01) ==
LOC: MW.SDS 09:53 → MW.MS 15:07 → MW.SDS 02-06 10:50
PROVIDERS: ATTEND Obstetrics & Gynecology
DX: D25.0 Submucous leiomyoma of uterus (principal); D25.1 Intramural leiomyoma of uterus; N80.0 Endometriosis of uterus; D50.0 Iron deficiency anemia secondary to blood loss (chronic); Z79.899 Other long term (current) drug therapy; K21.9 Gastro-esophageal reflux disease without esophagitis; Z98.890 Other specified postprocedural states; Z88.8 Allergy status to other drugs, medicaments and biological substances; Z88.5 Allergy status to narcotic agent; Z01.812 Encounter for preprocedural laboratory examination; Z20.822 Contact with and (suspected) exposure to COVID-19
CPT/HCPCS: 00944; 36415; 36430; 80048; 84703; 85014; 85018; 85025; 85027; 86850; 86900; 86901; 86920; 86921; 86922; 88307; A9270-GY; J1170; J1885; J2250; J2405; J2704; J3010; J3490; J7030; J7120; P9016; U0002

== ENCOUNTER 2021-07-08 08:14 | Emergency (ER) | payer MEDICAID, OTHER ==
[2021-07-08] MEDS ORDERED: cefTRIAXone 500 MG in Lidocaine 1% 1 ML IM ONE (09:10)
[2021-07-08] MEDS ORDERED: Ibuprofen 600 MG Tab PO ONE (09:11)
[2021-07-08] MEDS ORDERED: Acetaminophen 325 MG Tab PO ONE (09:11)
[2021-07-08 10:50] VITALS: BP 109/80; PULSE 67
== END 2021-07-08 10:40 | disposition home or self-care (01) ==
LOC: MW.ED 08:14
DX: M65.841 Other synovitis and tenosynovitis, right hand (principal); F17.210 Nicotine dependence, cigarettes, uncomplicated; Z88.5 Allergy status to narcotic agent; Z88.1 Allergy status to other antibiotic agents; Z79.899 Other long term (current) drug therapy
CPT/HCPCS: 96372; 99283; A9270; J0696

== ENCOUNTER 2021-07-11 14:25 | Emergency (ER) | payer MEDICAID, OTHER ==
[2021-07-11 14:48] VITALS: BP 140/79; PULSE 62
[2021-07-11] MEDS ORDERED: Ampicillin/Sulbactam Na 1.5 GM in Sodium Chloride 0.9% 50 ML IV ONE (15:06)
[2021-07-11] MEDS: Ampicillin/Sulbactam Na 1.5 GM in Sodium Chloride 0.9% 50 ML IV ONE (15:21)
[2021-07-11] MEDS: Ketorolac 30 MG/ML SDV IVPUSH ONE (15:22)
[2021-07-11 16:04] LABS: BLOOD UREA NITROGEN,BUN 10 mg/dL (7.0-18.0); CHLORIDE,CL 101 mmol/L (98-107); GLUCOSE RANDOM 94 mg/dL (74-106); POTASSIUM,K 3.4 mmol/L (3.5-5.1); SODIUM,NA 138 mmol/L (136-145)
== END 2021-07-11 18:17 | disposition home or self-care (01) ==
LOC: MW.ED 14:25
DX: M65.842 Other synovitis and tenosynovitis, left hand (principal); Z88.1 Allergy status to other antibiotic agents; Z88.5 Allergy status to narcotic agent; Z91.048 Other nonmedicinal substance allergy status
CPT/HCPCS: 36415; 80053; 85025; 96365; 96367; 96375; 99283; J0295; J1885; J3370; J7050

== ENCOUNTER 2021-07-12 11:07 | Emergency (ER) | payer MEDICAID, OTHER ==
[2021-07-12] MEDS ORDERED: Ampicillin/Sulbactam Na 3 GM in Sodium Chloride 0.9% 100 ML IV ONE ×2 (11:35→11:42)
[2021-07-12] MEDS ORDERED: Lidocaine 1% 5 ML VIAL INJECT ONE (11:36)
[2021-07-12] MEDS ORDERED: Ketorolac 30 MG/ML SDV IVPUSH ONE (12:15)
[2021-07-12] MEDS ORDERED: traMADol 50 MG Tab PO ONE (12:15)
[2021-07-12] MEDS ORDERED: Sulfamethoxazole/Trimethoprim 800-160 MG Tab PO ONE (12:43)
[2021-07-12] MEDS ORDERED: VANCOmycin 1.5 GM/300 ML 1.5 GM in Premix Bag 1 BAG IV ONE (12:45)
[2021-07-12 13:52] VITALS: BP 108/74; PULSE 62
== END 2021-07-12 13:51 | disposition home or self-care (01) ==
LOC: MW.ED 11:07
DX: M65.9 Synovitis and tenosynovitis, unspecified (principal); L08.9 Local infection of the skin and subcutaneous tissue, unspecified; Z88.1 Allergy status to other antibiotic agents; Z88.5 Allergy status to narcotic agent; Z91.048 Other nonmedicinal substance allergy status
CPT/HCPCS: 20610; 96365; 96367; 96375; 99283; A9270; J0295; J1885; J3370; 10060

== ENCOUNTER 2021-11-06 19:02 | Emergency (ER) | payer MEDICAID ==
[2021-11-06 19:15] VITALS: BP 123/76; PULSE 78
[2021-11-06] MEDS ORDERED: Lidocaine 1% with EPINEPHrine 1:100,000 10 ML MDV INJECT ONE (19:20)
[2021-11-06] MEDS ORDERED: Diphtheria,Pertussis(Acell),Tetanus Vaccine 0.5 ML Syringe IM ONE (19:20)
== END 2021-11-06 21:57 | disposition home or self-care (01) ==
LOC: MW.ED 19:02
DX: S01.81XA Laceration without foreign body of other part of head, initial encounter (principal); K21.9 Gastro-esophageal reflux disease without esophagitis; Z79.899 Other long term (current) drug therapy; Z88.0 Allergy status to penicillin; Z88.8 Allergy status to other drugs, medicaments and biological substances; Z23 Encounter for immunization; W10.9XXA Fall (on) (from) unspecified stairs and steps, initial encounter
CPT/HCPCS: 12014; 70450; 70450-26; 72125; 72125-26; 90471; 90715; 99283-25

== ENCOUNTER 2021-11-22 12:36 | Emergency (ER) | payer MEDICAID ==
[2021-11-22 12:44] VITALS: BP 110/63; PULSE 77
== END 2021-11-22 13:04 | disposition home or self-care (01) ==
LOC: MW.ED 12:36
DX: S01.81XD Laceration without foreign body of other part of head, subsequent encounter (principal)
CPT/HCPCS: 99281

== ENCOUNTER 2021-11-29 19:52 | Emergency (ER) | payer MEDICAID ==
[2021-11-29 22:04] VITALS: BP 120/74; PULSE 87
== END 2021-11-29 22:02 | disposition home or self-care (01) ==
LOC: MW.ED 19:52
DX: S00.33XA Contusion of nose, initial encounter (principal); Z88.1 Allergy status to other antibiotic agents; Z88.6 Allergy status to analgesic agent; Z91.048 Other nonmedicinal substance allergy status; W22.8XXA Striking against or struck by other objects, initial encounter
CPT/HCPCS: 70450; 70450-26; 70486; 70486-26; 99282; 99283

== ENCOUNTER 2022-03-06 08:09 | Emergency (ER) | payer MEDICAID ==
[2022-03-06 09:39] LABS: POTASSIUM,K 3.6 mmol/L (3.5-5.1)
[2022-03-06 12:05] VITALS: BP 124/74; PULSE 80
== END 2022-03-06 11:59 | disposition home or self-care (01) ==
LOC: MW.ED 08:09
DX: R07.9 Chest pain, unspecified (principal); Z88.1 Allergy status to other antibiotic agents; Z88.6 Allergy status to analgesic agent; Z91.048 Other nonmedicinal substance allergy status
CPT/HCPCS: 36415; 71045; 71045-26; 80053; 84484; 85025; 93005; 93010; 99283; 99285

== ENCOUNTER 2022-10-13 10:44 | Emergency (ER) | payer MEDICAID ==
[2022-10-13] MEDS ORDERED: Sodium Chloride 0.9% 10 ML Syringe FLUSH PRN (11:12)
[2022-10-13] MEDS ORDERED: Sodium Chloride 0.9% 2.5 ML Syringe FLUSH PRN (11:12)
[2022-10-13 11:29] LABS: BASOPHILS PERCENT AUTO 0.5 % (0.0-1.5); EOSINOPHILS ABSOLUTE AUTO 0.2 K/uL (0.0-0.7); EOSINOPHILS PERCENT AUTO 2.6 % (0.0-7.0); HEMATOCRIT 39.9 % (36.0-46.0); HEMOGLOBIN 13.4 g/dL (12.0-16.0); LYMPHOCYTES ABSOLUTE AUTO 1.9 K/uL (0.6-2.4); LYMPHOCYTES PERCENT AUTO 24.2 % (16.0-40.0); MEAN CORPUSCULAR HEMOGLOBIN 32.5 pg (27.0-32.0); MEAN CORPUSCULAR HGB CONC 33.6 g/dL (31.0-37.0); MEAN CORPUSCULAR VOLUME 96.8 fL (80.0-98.0); MONOCYTES ABSOLUTE AUTO 0.4 K/uL (0.0-0.8); MONOCYTES PERCENT AUTO 4.6 % (0.0-15.0); NEUTROPHILS ABSOLUTE AUTO 5.2 K/uL (1.4-5.7); NEUTROPHILS PERCENT AUTO 68.1 % (48.0-80.0); NRBC ABSOLUTE 0 K/uL; PLATELET COUNT,PLT 162 K/uL (150-400); RED BLOOD CELL COUNT 4.12 M/uL (4.30-5.90); WHITE BLOOD CELL COUNT,WBC 7.65 K/uL (4.0-11.0)
[2022-10-13 11:38] LABS: INR 1.06 (0.86-1.11)
[2022-10-13 11:52] LABS: A/G RATIO 1.1 (0.9-1.6); ALBUMIN 3.9 g/dL (3.4-5.0); BILIRUBIN TOTAL 0.9 mg/dL (0.2-1.0); CALCIUM 8.4 mg/dL (8.5-10.1); CARBON DIOXIDE,CO2 21.7 mmol/L (21.0-32.0); CREATININE 0.7 mg/dL (0.6-1.0); EST CRCL DRUG DOSING (CG) 91.01 mL/min; POTASSIUM,K 3.7 mmol/L (3.5-5.1); PROTEIN TOTAL,TP 7.4 g/dL (6.4-8.2)
[2022-10-13 12:28] VITALS: BP 119/84; PULSE 72
== END 2022-10-13 12:29 | disposition home or self-care (01) ==
LOC: MW.ED 10:44
DX: S90.822A Blister (nonthermal), left foot, initial encounter (principal); F17.210 Nicotine dependence, cigarettes, uncomplicated; Z86.16 Personal history of COVID-19; Z88.1 Allergy status to other antibiotic agents; Z88.5 Allergy status to narcotic agent; Z91.048 Other nonmedicinal substance allergy status; Z90.710 Acquired absence of both cervix and uterus
CPT/HCPCS: 36415; 73610; 73630; 80053; 85025; 85610; 85652; 86140; 87070; 87205; 99283; J3490; 87077; 87186

== ENCOUNTER 2022-12-22 21:03 | Observation (INO) | payer MEDICAID ==
[2022-12-22] MEDS ORDERED: Famotidine 20 MG/2 ML SDV IVPUSH ONE (21:22)
[2022-12-22] MEDS ORDERED: Ondansetron 4 MG/2 ML SDV IVPUSH ONE (21:22)
[2022-12-22] MEDS ORDERED: Sodium Chloride 0.9% 1,000 ML IV ONE ×2 (21:22→22:16)
[2022-12-22] MEDS ORDERED: Morphine 4 MG/ML Syringe IVPUSH ONE (21:22)
[2022-12-22] MEDS ORDERED: fentaNYL 50 MCG/ML SDV IVPUSH ONE (21:23)
[2022-12-22 21:43] LABS: BASOPHILS ABSOLUTE AUTO 0.1 K/uL (0.0-0.1); BASOPHILS PERCENT AUTO 0.8 % (0.0-1.5); EOSINOPHILS ABSOLUTE AUTO 0.1 K/uL (0.0-0.7); EOSINOPHILS PERCENT AUTO 1.6 % (0.0-7.0); HEMATOCRIT 34.4 % (36.0-46.0); HEMOGLOBIN 11.4 g/dL (12.0-16.0); LYMPHOCYTES PERCENT AUTO 32.2 % (16.0-40.0); MEAN CORPUSCULAR HEMOGLOBIN 33.2 pg (27.0-32.0); MEAN CORPUSCULAR HGB CONC 33.1 g/dL (31.0-37.0); MEAN CORPUSCULAR VOLUME 100.3 fL (80.0-98.0); MONOCYTES ABSOLUTE AUTO 1.2 K/uL (0.0-0.8); MONOCYTES PERCENT AUTO 19.3 % (0.0-15.0); NEUTROPHILS ABSOLUTE AUTO 2.9 K/uL (1.4-5.7); NEUTROPHILS PERCENT AUTO 46.1 % (48.0-80.0); NRBC ABSOLUTE 0 K/uL; PLATELET COUNT,PLT 271 K/uL (150-400); RED BLOOD CELL COUNT 3.43 M/uL (4.30-5.90); WHITE BLOOD CELL COUNT,WBC 6.33 K/uL (4.0-11.0)
[2022-12-22 21:44] LABS: APPEARANCE,URINE CLEAR; BILIRUBIN,URINE NEGATIVE (NEGATIVE); GLUCOSE,URINE NEGATIVE (NEGATIVE); KETONES,URINE NEGATIVE (NEGATIVE); LEUKOCYTE ESTERASE,URINE NEGATIVE (NEGATIVE); NITRITE,URINE NEGATIVE (NEGATIVE); OCCULT BLOOD,URINE NEGATIVE (NEGATIVE); PROTEIN,URINE NEGATIVE (NEGATIVE); UROBILINOGEN,URINE 0.2 EU/dL (<2.0)
[2022-12-22 21:45] LABS: COLOR,URINE STRAW
[2022-12-22] MEDS ORDERED: droPERidol 5 MG/2 ML SDV IVPUSH ONE (21:53)
[2022-12-22 21:54] LABS: AMPHETAMINES SCREEN, URINE NEGATIVE (CUTOFF=500); BARBITURATE SCREEN,URINE NEGATIVE (CUTOFF=200); BENZODIAZEPINES SCREEN,URINE NEGATIVE (CUTOFF=150); BUPRENORPHINE SCREEN,URINE NEGATIVE (CUTOFF=10); METHADONE SCREEN, URINE NEGATIVE (CUTOFF=200); METHAMPHETAMINES SCREEN, URINE NEGATIVE (CUTOFF=500); OXYCODONE SCREEN,URINE NEGATIVE (CUT0FF=100); PCP SCREEN,URINE NEGATIVE (CUTOFF=25); PROPOXYPHENE SCREEN,URINE NEGATIVE (CUTOFF=300); THC SCREEN,URINE 20 NG/ML NEGATIVE (CUTOFF=50)
[2022-12-22 22:07] LABS: A/G RATIO 1.2 (0.9-1.6); ALBUMIN 3.8 g/dL (3.4-5.0); BILIRUBIN TOTAL 0.5 mg/dL (0.2-1.0); CARBON DIOXIDE,CO2 27.2 mmol/L (21.0-32.0); CREATININE 0.6 mg/dL (0.6-1.0); EST CRCL DRUG DOSING (CG) 102.06 mL/min; MAGNESIUM 1.5 mg/dL (1.8-2.4); POTASSIUM,K 2.8 mmol/L (3.5-5.1); PROTEIN TOTAL,TP 6.9 g/dL (6.4-8.2)
[2022-12-22 22:10] LABS: LACTIC ACID 0.7 mmol/L (0.4-2.0)
[2022-12-22] MEDS ORDERED: Potassium Chloride 20 MEQ in Premix Bag 1 BAG IV ONE (22:15)
[2022-12-22] MEDS ORDERED: Magnesium Sulfate/Water 2 GM in Premix Bag 1 BAG IV ONE (22:16)
[2022-12-22] MEDS ORDERED: Iopamidol 755 MG/ML 500 ML Multipack Bottle IVPUSH ONE (22:32)
[2022-12-22] MEDS ORDERED: Potassium Chloride 20 MEQ Tab.ER PO ONE (23:48)
[2022-12-23] MEDS ORDERED: Ondansetron 4 MG/2 ML SDV IVPUSH PRN (01:04)
[2022-12-23] MEDS: fentaNYL 50 MCG/ML SDV IVPUSH PRN ×2 (01:35→06:19)
[2022-12-23 01:48] LABS: CALCIUM 8.1 mg/dL (8.5-10.1); CREATININE 0.6 mg/dL (0.6-1.0); EST CRCL DRUG DOSING (CG) 110.3 mL/min; POTASSIUM,K 3.4 mmol/L (3.5-5.1)
[2022-12-23] MEDS ORDERED: Pantoprazole 40 MG in Sodium Chloride 0.9% 10 ML IVPUSH SCH (08:30)
[2022-12-23] MEDS ORDERED: Potassium Chloride 20 MEQ Tab.ER PO ONE (08:53)
[2022-12-23] MEDS ORDERED: Acetaminophen 325 MG Tab PO PRN (08:54)
[2022-12-23] MEDS ORDERED: Sodium Chloride 0.9% 10 ML Syringe FLUSH PRN (08:54)
[2022-12-23] MEDS ORDERED: Sodium Chloride 0.9% 2.5 ML Syringe FLUSH PRN (08:54)
[2022-12-23 11:44] VITALS: BP 100/60; PULSE 65
[2022-12-23] MEDS ORDERED: Potassium Chloride 10 MEQ Tab.ER PO SCH (21:00)
[2022-12-24] MEDS ORDERED: Escitalopram 10 MG Tab PO SCH (09:00)
== END 2022-12-23 11:44 | disposition home or self-care (01) ==
LOC: MW.ED 21:03 → MW.MS 23:50
PROVIDERS: ADMIT Internal Medicine; ATTEND Internal Medicine
DX: K52.9 Noninfective gastroenteritis and colitis, unspecified (principal); E87.8 Other disorders of electrolyte and fluid balance, not elsewhere classified; E87.6 Hypokalemia; E87.1 Hypo-osmolality and hyponatremia; E83.42 Hypomagnesemia; F32.A Depression, unspecified; K21.9 Gastro-esophageal reflux disease without esophagitis; F17.210 Nicotine dependence, cigarettes, uncomplicated; Z88.1 Allergy status to other antibiotic agents; Z88.5 Allergy status to narcotic agent; Z91.09 Other allergy status, other than to drugs and biological substances; Z79.899 Other long term (current) drug therapy
CPT/HCPCS: 36415; 74177; 80048; 80053; 80305; 81003; 83605; 83690; 83735; 85025; 87045; 87046; 87324; 87328; 87329; 87338; 87449; 87899; 96361; 96365; 96368; 96375; 96376; 99285; A9270; C9113; G0378; J1790; J2405; J3010; J3475; J3480; J3490; J7030; Q9967; 99222; 99284

== ENCOUNTER 2024-06-11 06:42 | Emergency (ER) | payer SELFPAY ==
[2024-06-11 06:56] VITALS: BP 123/85; PULSE 102
[2024-06-11] MEDS: Ketorolac 30 MG/ML SDV IM ONE (07:23)
[2024-06-11] MEDS: Benzonatate 100 MG Cap PO ONE (07:23)
== END 2024-06-11 08:25 | disposition home or self-care (01) ==
LOC: MW.ED 06:42
DX: J18.9 Pneumonia, unspecified organism (principal); Z75.8 Other problems related to medical facilities and other health care; Z88.1 Allergy status to other antibiotic agents; Z88.5 Allergy status to narcotic agent; Z88.8 Allergy status to other drugs, medicaments and biological substances; Z79.899 Other long term (current) drug therapy; Z90.710 Acquired absence of both cervix and uterus
CPT/HCPCS: 71046; 87428; 96372; 99285; A9270; J1885

== ENCOUNTER 2024-12-08 14:37 | Inpatient (IN) | payer MEDICAID ==
[2024-12-08 16:16] LABS: BASOPHILS ABSOLUTE AUTO 0.04 K/uL (0.00-0.20); BASOPHILS PERCENT AUTO 1.0 % (0.0-1.0); EOSINOPHILS ABSOLUTE AUTO 0.22 K/uL (0.00-0.45); EOSINOPHILS PERCENT AUTO 5.4 % (0.0-6.0); IMMATURE GRAN ABSOLUTE AUTO 0.01 K/uL (0.00-0.05); IMMATURE GRAN PERCENT AUTO 0.2 % (0.0-0.4); LYMPHOCYTES ABSOLUTE AUTO 2.81 K/uL (1.00-4.80); LYMPHOCYTES PERCENT AUTO 69.0 % (24.0-44.0); MEAN PLATELET VOLUME 9.7 fL (9.4-12.3); MONOCYTES ABSOLUTE AUTO 0.21 K/uL (0.00-0.80); MONOCYTES PERCENT AUTO 5.2 % (0.0-8.0); NEUTROPHILS ABSOLUTE AUTO 0.78 K/uL (1.80-7.70); NEUTROPHILS PERCENT AUTO 19.2 % (41.0-71.0); NRBC ABSOLUTE 0.00 K/uL (0.00-0.02); NRBC PERCENT 0.0 /100WBC (0.0-0.2); PLATELET COUNT,PLT 155 K/uL (150-400); RED BLOOD CELL COUNT 3.77 M/uL (4.10-5.30); WHITE BLOOD CELL COUNT,WBC 4.07 K/uL (3.9-11.3)
[2024-12-08] MEDS: Ondansetron 4 MG/2 ML SDV IVPUSH ONE (16:21)
[2024-12-08] MEDS: Ketorolac 30 MG/ML SDV IVPUSH ONE (16:21)
[2024-12-08 16:30] LABS: A/G RATIO 1.1 (0.9-1.6); ALANINE AMINOTRANSFERASE,ALT 81.0 IU/L (14-63); ASPARTATE AMNIOTRANSFERASE,AST 77.0 IU/L (15-37); BILIRUBIN TOTAL 0.4 mg/dL (0.2-1.0); BLOOD UREA NITROGEN,BUN 9.0 mg/dL (7.0-18.0); CARBON DIOXIDE,CO2 26.2 mmol/L (21.0-32.0); CHLORIDE,CL 100.0 mmol/L (98-107); CREATININE 0.7 mg/dL (0.6-1.0); EST CRCL DRUG DOSING (CG) 85.56 mL/min; GLUCOSE RANDOM 124.0 mg/dL (74-106); POTASSIUM,K 3.3 mmol/L (3.5-5.1); PROTEIN TOTAL,TP 7.4 g/dL (6.4-8.2); SODIUM,NA 140.0 mmol/L (136-145)
[2024-12-08 16:31] LABS: ESTIMATED GFR 105.0 mL/min (>60)
[2024-12-08 16:49] LABS: GLUCOSE,URINE NEGATIVE (NEGATIVE); OCCULT BLOOD,URINE NEGATIVE (NEGATIVE)
[2024-12-08 16:50] LABS: LACTIC ACID 2.9 mmol/L (0.4-2.0)
[2024-12-08 16:56] LABS: APPEARANCE,URINE HAZY; EPITHELIAL CELLS,URINE FEW (NONE-FEW)
[2024-12-08] MEDS: Potassium Chloride 20 MEQ Tab.ER PO ONE (17:03)
[2024-12-08] MEDS: Iopamidol 755 MG/ML 500 ML Multipack Bottle IVPUSH STA (17:52)
[2024-12-08] MEDS ORDERED: Ondansetron 4 MG/2 ML SDV IVPUSH PRN (22:41)
[2024-12-08] MEDS: LORazepam 2 MG/ML SDV IVPUSH PRN (22:54)
[2024-12-08] MEDS: Pantoprazole 40 MG in Sodium Chloride 0.9% 10 ML IVPUSH SCH (22:54)
[2024-12-08] MEDS: Folic Acid 1 MG/0.2 ML UD Syringe IV SCH (22:54)
[2024-12-08] MEDS: Thiamine 200 MG/2 ML MDV IV SCH (22:55)
[2024-12-09] MEDS ORDERED: Sodium Chloride 0.9% 10 ML Syringe FLUSH PRN (00:01)
[2024-12-09] MEDS ORDERED: Sodium Chloride 0.9% 2.5 ML Syringe FLUSH PRN (00:01)
[2024-12-09 03:36] LABS: BASOPHILS ABSOLUTE AUTO 0.03 K/uL (0.00-0.20); BASOPHILS PERCENT AUTO 0.7 % (0.0-1.0); EOSINOPHILS ABSOLUTE AUTO 0.19 K/uL (0.00-0.45); EOSINOPHILS PERCENT AUTO 4.4 % (0.0-6.0); IMMATURE GRAN ABSOLUTE AUTO 0.01 K/uL (0.00-0.05); IMMATURE GRAN PERCENT AUTO 0.2 % (0.0-0.4); LYMPHOCYTES ABSOLUTE AUTO 2.14 K/uL (1.00-4.80); LYMPHOCYTES PERCENT AUTO 49.9 % (24.0-44.0); MEAN PLATELET VOLUME 9.6 fL (9.4-12.3); MONOCYTES ABSOLUTE AUTO 0.33 K/uL (0.00-0.80); MONOCYTES PERCENT AUTO 7.7 % (0.0-8.0); NEUTROPHILS ABSOLUTE AUTO 1.59 K/uL (1.80-7.70); NEUTROPHILS PERCENT AUTO 37.1 % (41.0-71.0); NRBC ABSOLUTE 0.00 K/uL (0.00-0.02); NRBC PERCENT 0.0 /100WBC (0.0-0.2); PLATELET COUNT,PLT 114 K/uL (150-400); RED BLOOD CELL COUNT 3.21 M/uL (4.10-5.30); WHITE BLOOD CELL COUNT,WBC 4.29 K/uL (3.9-11.3)
[2024-12-09 03:58] LABS: PHOSPHORUS 3.0 mg/dL (2.6-4.7)
[2024-12-09 03:59] LABS: A/G RATIO 1.2 (0.9-1.6); ALANINE AMINOTRANSFERASE,ALT 61.0 IU/L (14-63); ASPARTATE AMNIOTRANSFERASE,AST 56.0 IU/L (15-37); BILIRUBIN TOTAL 1.0 mg/dL (0.2-1.0); BLOOD UREA NITROGEN,BUN 4.0 mg/dL (7.0-18.0); CARBON DIOXIDE,CO2 27.1 mmol/L (21.0-32.0); CHLORIDE,CL 100.0 mmol/L (98-107); CREATININE 0.6 mg/dL (0.6-1.0); EST CRCL DRUG DOSING (CG) 99.82 mL/min; ESTIMATED GFR 109.0 mL/min (>60); GLUCOSE RANDOM 121.0 mg/dL (74-106); POTASSIUM,K 3.6 mmol/L (3.5-5.1); PROTEIN TOTAL,TP 6.2 g/dL (6.4-8.2); SODIUM,NA 137.0 mmol/L (136-145)
[2024-12-09] MEDS: Magnesium Sulfate 2 GM/50 mL 2 GM in Premix Bag 1 BAG IV ONE (13:26)
[2024-12-10 05:39] LABS: BASOPHILS ABSOLUTE AUTO 0.01 K/uL (0.00-0.20); BASOPHILS PERCENT AUTO 0.3 % (0.0-1.0); EOSINOPHILS ABSOLUTE AUTO 0.24 K/uL (0.00-0.45); EOSINOPHILS PERCENT AUTO 6.8 % (0.0-6.0); IMMATURE GRAN ABSOLUTE AUTO 0.01 K/uL (0.00-0.05); IMMATURE GRAN PERCENT AUTO 0.3 % (0.0-0.4); LYMPHOCYTES ABSOLUTE AUTO 1.62 K/uL (1.00-4.80); LYMPHOCYTES PERCENT AUTO 45.9 % (24.0-44.0); MEAN PLATELET VOLUME 10.7 fL (9.4-12.3); MONOCYTES ABSOLUTE AUTO 0.22 K/uL (0.00-0.80); MONOCYTES PERCENT AUTO 6.2 % (0.0-8.0); NEUTROPHILS ABSOLUTE AUTO 1.43 K/uL (1.80-7.70); NEUTROPHILS PERCENT AUTO 40.5 % (41.0-71.0); NRBC ABSOLUTE 0.00 K/uL (0.00-0.02); NRBC PERCENT 0.0 /100WBC (0.0-0.2); PLATELET COUNT,PLT 113 K/uL (150-400); RED BLOOD CELL COUNT 3.03 M/uL (4.10-5.30); WHITE BLOOD CELL COUNT,WBC 3.53 K/uL (3.9-11.3)
[2024-12-10 06:06] LABS: A/G RATIO 1.1 (0.9-1.6); ALANINE AMINOTRANSFERASE,ALT 50.0 IU/L (14-63); ASPARTATE AMNIOTRANSFERASE,AST 40.0 IU/L (15-37); BILIRUBIN TOTAL 0.9 mg/dL (0.2-1.0); CARBON DIOXIDE,CO2 26.0 mmol/L (21.0-32.0); CHLORIDE,CL 103.0 mmol/L (98-107); CREATININE 0.5 mg/dL (0.6-1.0); EST CRCL DRUG DOSING (CG) 119.78 mL/min; GLUCOSE RANDOM 101.0 mg/dL (74-106); PHOSPHORUS 3.3 mg/dL (2.6-4.7); POTASSIUM,K 3.2 mmol/L (3.5-5.1); PROTEIN TOTAL,TP 5.9 g/dL (6.4-8.2); SODIUM,NA 136.0 mmol/L (136-145)
[2024-12-10 06:08] LABS: ESTIMATED GFR 113.0 mL/min (>60)
[2024-12-10 06:14] LABS: BLOOD UREA NITROGEN,BUN 2.0 mg/dL (7.0-18.0)
[2024-12-10] MEDS: Potassium Chloride 20 MEQ Tab.ER PO SCH (08:35)
[2024-12-10 11:54] VITALS: BP 128/75; PULSE 67
[2024-12-10] MEDS: Potassium Chloride 20 MEQ Tab.ER PO ONE (12:16)
== END 2024-12-10 12:30 | disposition home or self-care (01) | DRG 897 ==
LOC: MW.ED 14:37 → MW.MS 21:33 → OBSVTOIN 12-09 11:18 → MW.MS 12-09 11:19
PROVIDERS: ADMIT Internal Medicine; ATTEND Internal Medicine
DX: F10.229 Alcohol dependence with intoxication, unspecified (principal); E87.20 Acidosis, unspecified; E86.0 Dehydration; F17.200 Nicotine dependence, unspecified, uncomplicated; E83.42 Hypomagnesemia; K29.20 Alcoholic gastritis without bleeding; K21.9 Gastro-esophageal reflux disease without esophagitis; F32.A Depression, unspecified; Z90.89 Acquired absence of other organs; Z90.710 Acquired absence of both cervix and uterus; Z88.1 Allergy status to other antibiotic agents; Z88.5 Allergy status to narcotic agent; Z88.6 Allergy status to analgesic agent; Z79.899 Other long term (current) drug therapy; Z79.52 Long term (current) use of systemic steroids; N17.9 Acute kidney failure, unspecified; Z75.3 Unavailability and inaccessibility of health-care facilities; Z79.51 Long term (current) use of inhaled steroids; Z88.8 Allergy status to other drugs, medicaments and biological substances
CPT/HCPCS: 36415 ×2; 74177; 80053 ×2; 80307; 81001; 82947 ×3; 83605 ×3; 83690; 83735 ×2; 84100; 85025 ×2; 96361 ×3; 96365; 96375 ×2; 96376; 99285; A9270 ×2; G0378 ×3; J1885; J2060 ×3; J2405; J2470; J3411 ×2; J7030 ×5; Q9967; 96374; J3475; J3490